=== PATIENT | male | born 1930 | race Caucasian/White ===

== ENCOUNTER 2018-01-13 20:23 | Emergency (ER) | payer OTHER, MEDICARE ==
[2018-01-13 20:40] VITALS: BP 162/63
== END 2018-01-13 22:33 | disposition left against medical advice (07) ==
LOC: DL.ED 20:23
DX: Z53.21 Procedure and treatment not carried out due to patient leaving prior to being seen by health care provider (principal)

== ENCOUNTER 2019-07-09 10:26 | Emergency (ER) | payer MEDICARE ==
[2019-07-09] MEDS ORDERED: Acetaminophen 325 MG Tab PO ONE (11:58)
--- NOTE | 2019-07-09 12:39 | EDM.PDOC ---
Scribed by Nikki Woody 07/09/19 1237 for Nupur Fofana NP ED HPI GENERAL MEDICAL PROBLEM - General Chief Complaint: Back Pain or Injury Stated Complaint: FELL AND HURT BACK Time Seen by Provider: 07/09/19 10:55 Source of Information: Reports: Patient, RN, RN Notes Reviewed History Limitations: Reports: No Limitations - History of Present Illness INITIAL COMMENTS - FREE TEXT/NARRATIVE: Patient presents to ER stating that last night he fell against a [place] bed. He has left sided mid lower back pain. He is on no blood thinner. He has no urinary symptoms. Left Lower Back Pain Score (Numeric/FACES): 2 - Related Data Allergies Allergy/AdvReac Type Severity Reaction Status Date / Time hydrocodone AdvReac Mild Nausea and Verified 07/09/19 10:38 Vomiting Home Meds: Home Meds Simvastatin [Zocor] 20 mg PO BEDTIME 01/12/14 [History] glipiZIDE [glipiZIDE XL] 5 mg PO ACDINNER 01/12/14 [History] Cholecalciferol (Vitamin D3) [Cholecalciferol] 1,000 units PO DAILY 05/24/14 [ History] Docusate Sodium 250 mg PO BID 11/29/18 [History] Donepezil [Aricept] 5 mg PO DAILY 11/29/18 [History] Finasteride 5 mg PO DAILY 11/29/18 [History] Levothyroxine [Synthroid] 0.1 mg PO DAILY 11/29/18 [History] Polyethylene Glycol 3350 17 gm PO ASDIRECTED 11/29/18 [History] Propranolol [Inderal LA] 80 mg PO DAILY 11/29/18 [History] Saxagliptin HCl [Onglyza] 2.5 mg PO DAILY 11/29/18 [History] glipiZIDE [Glucotrol] 10 mg PO ACBREAKFAST 11/29/18 [History] Carbidopa/Levodopa [Carbidopa-Levo 25-100 MG ODT] 25 - 100 mg PO TID 11/30/18 [ History] Sennosides [Senna] 8.6 mg PO DAILY 11/30/18 [History] Ciclopirox/Ure/Camph/Menth/Euc [Ciclopirox 8% Treatment Kit] 1 applic TOP BID [History] Magnesium Oxide [Magnesium] 400 mg PO DAILY 07/09/19 [History] metFORMIN HCl [Metformin HCl] 1,000 mg PO BID 07/09/19 [History] Past Medical History HEENT History: Reports: Cataract Cardiovascular History: Reports: CAD, Heart Murmur, High Cholesterol, Other ( See Below) Other Cardiovascular History: leaky valve Respiratory History: Reports: None Gastrointestinal History: Reports: Chronic Constipation, Hemorrhoids Musculoskeletal History: Reports: None Neurological History: Reports: Parkinson's, Vertigo Endocrine/Metabolic History: Reports: Diabetes, Type II Oncologic (Cancer) History: Reports: Other (See Below) Other Oncologic History: skin Dermatologic History: Reports: Other (See Below) Other Dermatologic History: rosacea - Infectious Disease History Infectious Disease History: Reports: Chicken Pox - Past Surgical History HEENT Surgical History: Reports: Cataract Surgery GI Surgical History: Reports: Colonoscopy, Hernia Repair/Other Social & Family History - Family History Family Medical History: Noncontributory ED ROS GENERAL - Review of Systems Review Of Systems: ROS reveals no pertinent complaints other than HPI. ED EXAM,LOWER BACK PAIN/INJURY - Physical Exam Exam: See Below Exam Limited By: No Limitations General Appearance: Alert, WD/WN, No Apparent Distress Eye Exam: Bilateral Eye: EOMI, Normal Inspection, PERRL Ears: Normal External Exam, Normal Canal, Hearing Grossly Normal, Normal TMs Nose: Normal Inspection, Normal Mucosa, No Blood Throat/Mouth: Normal Inspection, Normal Lips, Normal Teeth, Normal Gums, Normal Oropharynx, Normal Voice, No Airway Compromise Head: Atraumatic, Normocephalic Neck: Normal Inspection, Supple, Non-Tender, Full Range of Motion Respiratory/Chest: No Respiratory Distress, Lungs Clear, Normal Breath Sounds, No Accessory Muscle Use, Chest Non-Tender Cardiovascular: Normal Peripheral Pulses, Regular Rate, Rhythm, No Edema, No Gallop, No JVD, No Murmur, No Rub GI/Abdominal: Normal Bowel Sounds, Soft, Non-Tender, No Organomegaly, No Distention, No Abnormal Bruit, No Mass (Male) Exam: No Hernia Rectal (Males) Exam: Deferred Back Exam: Other (left low lumbar pain to palpation) Extremities: Normal Inspection, Normal Range of Motion, Non-Tender, No Pedal Edema, Normal Capillary Refill Neurological: Alert, Normal Mood/Affect, Normal Dorsiflexion, CN II-XII Intact, Normal Plantar Flexion, Normal Gait, Normal Reflexes, No Motor/Sensory Deficits , Oriented x 3 Psychiatric: Normal Affect, Normal Mood Skin Exam: Warm, Dry, Intact, Normal Color, No Rash Lymphatic: No Adenopathy Course - Vital Signs Last Recorded V/S: Last Vital Signs Temp 36.4 C 07/09/19 11:45 Pulse 84 07/09/19 11:45 Resp 18 07/09/19 11:45 BP 170/70 H 07/09/19 11:45 Pulse Ox 95 07/09/19 11:45 - Orders/Labs/Meds Orders: Active Orders 24 hr Category Date Time Status Lumbar Spine 2 or 3V [CR] Urgent Exams 07/09/19 11:01 Taken Labs: Laboratory Tests 07/09/19 Range/Units 11:45 Urine Color Yellow (YELLOW) Urine Appearance Clear (CLEAR) Urine pH 6.5 (5.0-9.0) Ur Specific [place] 1.015 (1.005-1.030) Urine Protein Negative (NEGATIVE) Urine Glucose (UA) 100 H (NEGATIVE) Urine Ketones Negative (NEGATIVE) Urine Occult Blood Negative (NEGATIVE) Urine Nitrite Negative (NEGATIVE) Urine Bilirubin Negative (NEGATIVE) Urine Urobilinogen 0.2 (0.2-1.0) mg/dL Ur Leukocyte Esterase Negative (NEGATIVE) Meds: Medications Discontinued Medications Generic Name Dose Route Start Last Admin Trade Name Dayna PRN Reason Stop Dose Admin Acetaminophen 650 mg 07/09/19 11:58 07/09/19 12:04 Tylenol PO 07/09/19 11:59 650 mg NOW ONE Administration - Radiology Interpretation Free Text/Narrative:: Lumbosacral spine: No acute lumbar spine process. Cholelithiasis. Degenerative disc disease. See rad report. - Re-Assessments/Exams Free Text/Narrative Re-Assessment/Exam: 07/09/19 12:34 Neg lumbar xray for fractures. He cholelithiasis on seen on xray; no abdominal pain. + DDD. Urine negative. Given tylenol and improved. Had some nausea; not unusual for him; his Parkinson meds make him nauseated an dizzy; seeing his PCP for this; but not any unusual differences for him. Tip LE strong 5/5. Suspect muscular pain lumbar back. Given tylenol for pain and improved. 07/09/19 12:37 Departure - Departure Time of Disposition: 12:37 Disposition: Home, Self-Care 01 Condition: Good Clinical Impression: Lumbar back pain Fall from standing Qualifiers: Encounter type: initial encounter Qualified Code(s): W19.XXXA - Unspecified fall, initial encounter - Discharge Information *PRESCRIPTION DRUG MONITORING PROGRAM REVIEWED*: Not Applicable *COPY OF PRESCRIPTION DRUG MONITORING REPORT IN PATIENT [place]: Not Applicable Instructions: Musculoskeletal Pain, Back Injury Prevention, Heat Therapy, Easy- to-Read, Acute Back Pain, Adult Forms: ED Department Discharge Additional Instructions: Heat pad frequently. follow up with primary care next week. Return if symptoms worsen. - My Orders Last 24 Hours: My Active Orders 07/09/19 11:01 Lumbar Spine 2 or 3V [CR] Urgent - Assessment/Plan Last 24 Hours: My Active Orders 07/09/19 11:01 Lumbar Spine 2 or 3V [CR] Urgent I have read and agree with the documentation that has been completed regarding this visit. By signing this record, I attest that the documentation was completed in my physical presence and is an accurate record of the encounter.
[2019-07-09 12:45] VITALS: BP 158/86; PULSE 80
== END 2019-07-09 12:54 | disposition home or self-care (01) ==
LOC: DL.ED 10:26
DX: M54.5 Low back pain (principal); I25.10 Atherosclerotic heart disease of native coronary artery without angina pectoris; E11.9 Type 2 diabetes mellitus without complications; G20 Parkinson's disease; Z88.5 Allergy status to narcotic agent; E78.00 Pure hypercholesterolemia, unspecified; Z79.899 Other long term (current) drug therapy; Z79.84 Long term (current) use of oral hypoglycemic drugs; W01.190A Fall on same level from slipping, tripping and stumbling with subsequent striking against furniture, initial encounter
CPT/HCPCS: 72100; 81003; 99283; A9270